=== PATIENT | male | born 1985 | race Caucasian/White ===

== ENCOUNTER 2020-11-26 04:34 | Inpatient (IN) | payer SELFPAY ==
--- NOTE | 2020-11-26 05:20 | Event Note ---
ED Screening Note Date of service: 11/26/20 Time: 05:19 ED Screening Note: Patient complains of nausea and vomiting and abdominal pain History of HIV-states compliance with antiretrovirals and states he is currently undetectable + Hematemesis Denies fever Tachycardia noted This initial assessment/diagnostic orders/clinical plan/treatment(s) is/are subject to change based on patients health status, clinical progression and re- assessment by fellow clinical providers in the ED. Further treatment and workup at subsequent clinical providers discretion. Patient/guardian urged not to elope from the ED as their condition may be serious if not clinically assessed and managed. Initial orders include: Lab CT
[2020-11-26 05:49] LABS: Basophils % (Auto) 0.2 % (0.0-1.8); Eosinophils # (Auto) 0.1 K/mm3 (0.0-0.4); Eosinophils % (Auto) 0.6 % (0.0-4.3); Hematocrit 45.8 % (35.5-45.6); Hemoglobin 15.4 gm/dl (11.8-15.2); Lymphocytes # (Auto) 2.2 K/mm3 (1.2-5.4); Lymphocytes % (Auto) 14.3 % (13.4-35.0); Mean Corpuscular HGB Conc 34 % (32-34); Mean Corpuscular Volume 90 fl (84-94); Monocytes # (Auto) 1.1 K/mm3 (0.0-0.8); Monocytes % (Auto) 6.9 % (0.0-7.3); Platelet Count 218 K/mm3 (140-440); Red Blood Count 5.11 M/mm3 (3.65-5.03)
[2020-11-26 05:54] LABS: INR 0.87 (0.87-1.13)
[2020-11-26 05:55] LABS: Partial Thromboplastin Time 26.7 Sec. (24.2-36.6)
[2020-11-26 06:09] LABS: Alanine Aminotransferase 22 units/L (7-56); Albumin 4.6 g/dL (3.9-5); BUN/Creatinine Ratio 12; Blood Urea Nitrogen 13 mg/dL (9-20); Hemolysis Index 3
[2020-11-26] MEDS ORDERED: SODIUM CHLORIDE 0.9% 1000 ML 1,000 ML IV ONE (06:38)
[2020-11-26] MEDS ORDERED: PANTOPRAZOLE 40 MG INJ IV ONE (06:38)
[2020-11-26] MEDS ORDERED: LORazepam 2 MG/ML VIAL IV ONE (06:53)
--- NOTE | 2020-11-26 07:01 | Cat Scan Report ---
CT abdomen pelvis w con INDICATION: abdominal pain, hematemesis. TECHNIQUE: All CT scans at this location are performed using the following dose modulation technique: Automated exposure control. CONTRAST: Omnipaque 300, 100 cc IV injection. COMPARISON: None available. CT ABDOMEN: The parenchymal organs are unremarkable in appearance. Negative for abdominal mass, fluid or inflammation. The bowel is not dilated or thickened. CT PELVIS: Negative for mass, fluid or inflammation. IMPRESSION: Negative for obstruction or localized inflammation. Signer Name: Davian Lucas MD Signed: 11/26/2020 6:56 AM Workstation Name: [id number]
[2020-11-26 07:30] LABS: Basophils % (Auto) 0.2 % (0.0-1.8); Eosinophils # (Auto) 0.1 K/mm3 (0.0-0.4); Eosinophils % (Auto) 0.4 % (0.0-4.3); Hematocrit 44.1 % (35.5-45.6); Hemoglobin 14.7 gm/dl (11.8-15.2); Lymphocytes # (Auto) 1.8 K/mm3 (1.2-5.4); Lymphocytes % (Auto) 13.2 % (13.4-35.0); Mean Corpuscular HGB Conc 33 % (32-34); Mean Corpuscular Volume 90 fl (84-94); Monocytes # (Auto) 0.8 K/mm3 (0.0-0.8); Monocytes % (Auto) 5.8 % (0.0-7.3); Platelet Count 193 K/mm3 (140-440); Red Blood Count 4.92 M/mm3 (3.65-5.03); Red Cell Distribution Width 13.1 % (13.2-15.2)
[2020-11-26 07:42] LABS: INR 0.9 (0.87-1.13)
[2020-11-26 07:43] LABS: Partial Thromboplastin Time 26.7 Sec. (24.2-36.6)
[2020-11-26 07:48] LABS: Creatine Kinase MB 6.3 ng/mL (0.0-4.0)
--- NOTE | 2020-11-26 08:20 | XRay Report ---
CHEST 1 VIEW 11/26/2020 8:00 AM INDICATION / CLINICAL INFORMATION: hypertension. COMPARISON: None available. FINDINGS: SUPPORT DEVICES: None. HEART / MEDIASTINUM: No significant abnormality. LUNGS / PLEURA: Clear lungs. No significant pleural effusion. No pneumothorax. ADDITIONAL FINDINGS: No significant additional findings. IMPRESSION: 1. No acute abnormality of the chest. Signer Name: Aaron Andujar MD Signed: 11/26/2020 8:15 AM Workstation Name: [id number]
[2020-11-26 08:30] LABS: Bacteria,Urine 2+ /HPF (Negative); Bilirubin,Urine NEG (Negative); Blood,Urine NEG (Negative); Color,Urine Yellow (Yellow); Mucus,Urine FEW /HPF; Protein,Urine <15 mg/dL mg/dL (Negative); Urobilinogen,Urine < 2.0 mg/dL (<2.0)
--- NOTE | 2020-11-26 10:16 | Emergency Department Report ---
ED General Adult HPI - General Chief complaint: GI Bleed Stated complaint: VOMITING X 4 DAYS Time Seen by Provider: 11/26/20 05:18 Source: patient Mode of arrival: Stretcher Limitations: No Limitations - History of Present Illness Initial comments: This is a 35-year-old male that states he has been vomiting for 4 days. Occasionally the emesis looked like coffee grounds or Coca-Cola. Today he had a bout of more significant emesis. He showed me a cell phone picture of his commode which did appear consistent with an upper GI bleed. There was no sign ificant quantity of fresh blood. However, there was a moderate amount of dark material consistent with upper GI bleeding in the photo. Patient complains of abdominal pain which is somewhat diffuse and intermittent. He is somewhat anxious and a bit hypomanic at the time of my encounter. He admits to recent methamphetamine abuse. Patient does not refer a history of prior GI bleeding. -: Gradual, days(s) Location: abdomen Radiation: non-radiation Quality: aching Consistency: intermittent Improves with: none Worsens with: none Associated Symptoms: denies other symptoms, nausea/vomiting Treatments Prior to Arrival: none - Related Data Home Medications Medication Instructions Recorded Confirmed Last Taken Elviteg/Joleen/Emtric/Tenofo Ala 500 mg PO DAILY 11/26/20 11/26/20 1 Week Ago [Mona (Olena)] ~11/19/20 Allergies Allergy/AdvReac Type Severity Reaction Status Date / Time amoxicillin Allergy Hives Verified 11/26/20 05:41 ED Review of Systems ROS: Stated complaint: VOMITING X 4 DAYS Other details as noted in HPI Constitutional: denies: chills, fever Eyes: denies: eye pain, eye discharge, vision change ENT: denies: ear pain, throat pain Respiratory: denies: cough, shortness of breath Cardiovascular: denies: chest pain, palpitations Endocrine: no symptoms reported Gastrointestinal: abdominal pain, nausea, other (States bowel movements have been normal). denies: diarrhea, melena, hematochezia Genitourinary: denies: urgency, dysuria Musculoskeletal: denies: back pain, joint swelling, arthralgia Skin: denies: rash, lesions Neurological: denies: headache, weakness, paresthesias Psychiatric: denies: anxiety, depression Hematological/Lymphatic: denies: easy bleeding, easy bruising ED Past Medical Hx - Past Medical History Previous Medical History?: Yes Hx HIV: Yes Additional medical history: Stomach Ulcer - Surgical History Past Surgical History?: Yes Additional Surgical History: Bowel Surgery - Social History Smoking Status: Never Smoker Substance Use Type: None - Medications Home Medications: Home Medications Medication Instructions Recorded Confirmed Last Taken Type Elviteg/Joleen/Emtric/Tenofo Ala 500 mg PO DAILY 11/26/20 11/26/20 1 Week Ago History [Genvoya (Nf)] ~11/19/20 ED Physical Exam - General Limitations: No Limitations General appearance: alert, in no apparent distress - Head Head exam: Present: atraumatic, normocephalic - Eye Eye exam: Present: normal appearance. Absent: scleral icterus - ENT ENT exam: Present: mucous membranes moist - Neck Neck exam: Present: normal inspection - Respiratory Respiratory exam: Present: normal lung sounds bilaterally. Absent: respiratory distress - Cardiovascular Cardiovascular Exam: Present: regular rate, normal rhythm. Absent: systolic murmur, diastolic murmur, rubs, gallop - GI/Abdominal GI/Abdominal exam: Present: soft, tenderness (Mild and diffuse without peritoneal signs), normal bowel sounds. Absent: distended, guarding, rebound, rigid, organomegaly, mass, bruit, pulsatile mass - Rectal Rectal exam: Present: deferred - Extremities Exam Extremities exam: Present: normal inspection - Back Exam Back exam: Present: normal inspection - Neurological Exam Neurological exam: Present: alert, oriented X3. Absent: motor sensory deficit - Psychiatric Psychiatric exam: Present: agitated, manic - Skin Skin exam: Present: warm, dry, intact, normal color. Absent: rash ED Course Vital Signs 11/26/20 11/26/20 11/26/20 05:21 06:31 07:30 Temperature 98.2 F Pulse Rate 106 H 102 H Respiratory 17 18 32 H Rate Blood Pressure 109/90 120/71 O2 Sat by Pulse 98 100 Oximetry 11/26/20 11/26/20 08:01 09:01 Temperature Pulse Rate 100 H Respiratory 20 15 Rate Blood Pressure 114/76 113/67 O2 Sat by Pulse 100 98 Oximetry - Reevaluation(s) Reevaluation #1: Patient was given Ativan and IV fluids. CT the abdomen showed no acute process. He was observed in the emergency department. He had no additional emesis. He remained hemodynamically stable. He was deemed appropriate for observation admission and admitted by the hospitalist staff 11/26/20 10:38 ED Medical Decision Making - Lab Data Result diagrams: 11/26/20 07:14 11/26/20 05:30 Laboratory Results - last 24 hr 11/26/20 11/26/20 11/26/20 05:30 05:30 05:30 WBC 15.4 H RBC 5.11 H Hgb 15.4 H Hct 45.8 H MCV 90 MCH 30 MCHC 34 RDW 13.0 L Plt Count 218 Lymph % (Auto) 14.3 [place] % (Auto) 6.9 Eos % (Auto) 0.6 Baso % (Auto) 0.2 Lymph # (Auto) 2.2 [place] # (Auto) 1.1 H Eos # (Auto) 0.1 Baso # (Auto) 0.0 Seg Neutrophils % 78.0 H Seg Neutrophils # 12.0 H PT 11.6 L INR 0.87 APTT 26.7 Sodium 136 L Potassium 4.2 Chloride 96.3 L Carbon Dioxide 30 Anion Gap 14 BUN 13 Creatinine 1.1 Estimated GFR > 60 BUN/Creatinine Ratio 12 Glucose 102 H Calcium 10.0 Magnesium Total Bilirubin 0.30 AST 25 ALT 22 Alkaline Phosphatase 121 Total Creatine Kinase CK-MB (CK-2) CK-MB (CK-2) Rel Index Total Protein 7.9 Albumin 4.6 Albumin/Globulin Ratio 1.4 Lipase 12 L Urine Color Urine Turbidity Urine pH Ur Specific [place] Urine Protein Urine Glucose (UA) Urine Ketones Urine Blood Urine Nitrite Urine Bilirubin Urine Urobilinogen Ur Leukocyte Esterase Urine WBC (Auto) Urine RBC (Auto) U Epithel Cells (Auto) Urine Bacteria (Auto) Urine Mucus Blood Type Antibody Screen 11/26/20 11/26/20 11/26/20 07:14 07:14 07:14 WBC 13.7 H RBC 4.92 Hgb 14.7 Hct 44.1 MCV 90 MCH 30 MCHC 33 RDW 13.1 L Plt Count 193 Lymph % (Auto) 13.2 L [place] % (Auto) 5.8 Eos % (Auto) 0.4 Baso % (Auto) 0.2 Lymph # (Auto) 1.8 [place] # (Auto) 0.8 Eos # (Auto) 0.1 Baso # (Auto) 0.0 Seg Neutrophils % 80.4 H Seg Neutrophils # 11.0 H PT 11.9 L INR 0.90 APTT 26.7 Sodium Potassium Chloride Carbon Dioxide Anion Gap BUN Creatinine Estimated GFR BUN/Creatinine Ratio Glucose Calcium Magnesium 1.80 Total Bilirubin AST ALT Alkaline Phosphatase Total Creatine Kinase 354 H CK-MB (CK-2) 6.3 H CK-MB (CK-2) Rel Index 1.7 Total Protein Albumin Albumin/Globulin Ratio Lipase Urine Color Urine Turbidity Urine pH Ur Specific [place] Urine Protein Urine Glucose (UA) Urine Ketones Urine Blood Urine Nitrite Urine Bilirubin Urine Urobilinogen Ur Leukocyte Esterase Urine WBC (Auto) Urine RBC (Auto) U Epithel Cells (Auto) Urine Bacteria (Auto) Urine Mucus Blood Type Antibody Screen 11/26/20 11/26/20 07:14 08:12 WBC RBC Hgb Hct MCV MCH MCHC RDW Plt Count Lymph % (Auto) [place] % (Auto) Eos % (Auto) Baso % (Auto) Lymph # (Auto) [place] # (Auto) Eos # (Auto) Baso # (Auto) Seg Neutrophils % Seg Neutrophils # PT INR APTT Sodium Potassium Chloride Carbon Dioxide Anion Gap BUN Creatinine Estimated GFR BUN/Creatinine Ratio Glucose Calcium Magnesium Total Bilirubin AST ALT Alkaline Phosphatase Total Creatine Kinase CK-MB (CK-2) CK-MB (CK-2) Rel Index Total Protein Albumin Albumin/Globulin Ratio Lipase Urine Color Yellow Urine Turbidity Clear Urine pH 7.0 Ur Specific [place] 1.060 H Urine Protein <15 mg/dl Urine Glucose (UA) Neg Urine Ketones Tr Urine Blood Neg Urine Nitrite Neg Urine Bilirubin Neg Urine Urobilinogen < 2.0 Ur Leukocyte Esterase Neg Urine WBC (Auto) 1.0 Urine RBC (Auto) 1.0 U Epithel Cells (Auto) < 1.0 Urine Bacteria (Auto) 2+ Urine Mucus Few Blood Type O NEGATIVE Antibody Screen Negative - EKG Data -: EKG Interpreted by Vt EKG shows normal: sinus rhythm, axis, intervals, QRS complexes, ST-T waves Rate: normal - EKG Data Interpretation: other (RSR V1 V2, slight intraventricular conduction delay) - Radiology Data Radiology results: report reviewed CHEST 1 VIEW 11/26/2020 8:00 AM INDICATION / CLINICAL INFORMATION: hypertension. COMPARISON: None available. FINDINGS: SUPPORT DEVICES: None. HEART / MEDIASTINUM: No significant abnormality. LUNGS / PLEURA: Clear lungs. No significant pleural effusion. No pneumothorax. ADDITIONAL FINDINGS: No significant additional findings. IMPRESSION: 1. No acute abnormality of the chest. CT the abdomen no acute process Critical care attestation.: If time is entered above; I have spent that time in minutes in the direct care of this critically ill patient, excluding procedure time. ED Disposition Clinical Impression: Upper GI bleeding, Methamphetamine abuse, HIV positive Abdominal pain Qualifiers: Abdominal location: generalized Qualified Code(s): R10.84 - Generalized abdominal pain Leukocytosis Qualifiers: Leukocytosis type: unspecified Qualified Code(s): D72.829 - Elevated white blood cell count, unspecified Disposition: DC-09 OP ADMIT IP TO THIS HOSP Is pt being admited?: Yes Does the pt Need Aspirin: No Condition: Stable Referrals: NENA HICKS DO [Primary Care Provider] - 3-5 Days Forms: Accompanied Note Time of Disposition: 10:48
[2020-11-26] MEDS ORDERED: ACETAMINOPHEN 325 MG TAB PO PRN (10:19)
[2020-11-26] MEDS ORDERED: ONDANSETRON 4 MG/2 ML INJ IV PRN (10:19)
[2020-11-26] MEDS ORDERED: MORPHINE 2 MG/1 ML INJ IV PRN (10:19)
[2020-11-26] MEDS ORDERED: ALBUTEROL 2.5 MG/3 ML NEBU IH PRN (10:19)
--- NOTE | 2020-11-26 10:22 | History and Physical Report ---
History of Present Illness Date of examination: 11/26/20 Date of admission: 11/26/20 Chief complaint: Correction of blood History of present illness: Patient is a 35-year-old male with history of HIV who presents to the ED with complaints of coffee-ground emesis which he describes as Coca-Cola.. Reports that this has been going on for 4 days with no associated abdominal pain. He reports that prior to this he has had multiple episodes of dry heaving. He also reports that a few days ago before this started that he did meth amphetamine. 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 He reports compliance with his HIV medication. He denies any suicidal homicidal ideation although in the ER he had appeared a bit anxious and with a consider hypomanic but he was actually more alert awake oriented during the time of my evaluation. He tells me that he does not want to stay in the hospital and will be signing out AGAINST MEDICAL ADVICE. Past History Past Medical History: HIV/AIDS Past Surgical History: No surgical history Social history: , IV drug use, full code Family history: no significant family history Medications and Allergies Allergies Allergy/AdvReac Type Severity Reaction Status Date / Time amoxicillin Allergy Hives Verified 11/26/20 05:41 Home Medications Medication Instructions Recorded Confirmed Last Taken Type Elviteg/Joleen/Emtric/Tenofo Ala 500 mg PO DAILY 11/26/20 11/26/20 1 Week Ago History [Genvoya (Nf)] ~11/19/20 Ondansetron [Zofran Odt] 4 mg PO Q6H #30 tab.rapdis 11/26/20 Unknown Rx Pantoprazole [Protonix TAB] 40 mg PO QDAY #30 tablet 11/26/20 Unknown Rx Active Meds: Active Medications Acetaminophen (Acetaminophen 325 Mg Tab) 650 mg PO Q4H PRN PRN Reason: Pain MILD(1-3)/Fever >100.5/GALVAN Albuterol (Albuterol 2.5 Mg/3 Ml Nebu) 2.5 mg IH Q3HRT PRN PRN Reason: Shortness Of Breath Morphine Sulfate (Morphine 2 Mg/1 Ml Inj) 2 mg IV Q4H PRN PRN Reason: Pain, Moderate (4-6) Ondansetron HCl (Ondansetron 4 Mg/2 Ml Inj) 4 mg IV Q4H PRN PRN Reason: Nausea And Vomiting Pantoprazole Sodium (Pantoprazole 40 Mg Inj) 40 mg IV BID BELEM Sodium Chloride (Sodium Chloride 0.9% 10 Ml Flush Syringe) 10 ml IV BID BELEM Sodium Chloride (Sodium Chloride 0.9% 10 Ml Flush Syringe) 10 ml IV PRN PRN PRN Reason: LINE FLUSH Review of Systems All systems: negative Eyes: bilateral: other (Different colored contacts) Respiratory: no hemoptysis, no shortness of breath, no dyspnea on exertion Gastrointestinal: no abdominal pain, no vomiting, no constipation, no change in bowel habits, no melena, no hematochezia, no loss of appetite Genitourinary Male: impotence, no hematuria, no urinary frequency, no urinary hesitancy, no nocturia, no testicular pain Exam - Physical Exam Narrative exam: VITAL SIGNS: Reviewed. GENERAL: The patient appears normally developed, Vital signs as documented. HEAD: No signs of head trauma. EYES: Pupils are equal. Extraocular motions intact. EARS: Hearing grossly intact. MOUTH: Oropharynx is normal. NECK: No adenopathy, no JVD. CHEST: Chest with clear breath sounds bilaterally. No wheezes, rales, or rhonchi. CARDIAC: Regular rate and rhythm. S1 and S2, without murmurs, gallops, or rubs. VASCULAR: No Edema. Peripheral pulses normal and equal in all extremities. ABDOMEN: Soft, non tender and non distended. No rebound or guarding, and no masses palpated. Bowel Sounds normal. MUSCULOSKELETAL: Good range of motion of all major joints. Extremities without clubbing, cyanosis or edema. NEUROLOGIC EXAM: Alert and oriented x 3 No focal sensory or strength deficits. Speech normal. Follows commands. PSYCHIATRIC: Mood normal. SKIN: detail exam as documented in skin assessment - Constitutional Vitals: Temp Pulse Resp BP Pulse Ox 98.2 F 100 H 15 113/67 98 11/26/20 05:21 11/26/20 08:01 11/26/20 09:01 11/26/20 09:01 11/26/20 09:01 Results - Labs CBC & Chem 7: 11/26/20 07:14 11/26/20 05:30 Labs: Laboratory Last Values WBC 13.7 K/mm3 (4.5-11.0) H 11/26/20 07:14 RBC 4.92 M/mm3 (3.65-5.03) 11/26/20 07:14 Hgb 14.7 gm/dl (11.8-15.2) 11/26/20 07:14 Hct 44.1 % (35.5-45.6) 11/26/20 07:14 MCV 90 fl (84-94) 11/26/20 07:14 MCH 30 pg (28-32) 11/26/20 07:14 MCHC 33 % (32-34) 11/26/20 07:14 RDW 13.1 % (13.2-15.2) L 11/26/20 07:14 Plt Count 193 K/mm3 (140-440) 11/26/20 07:14 Lymph % (Auto) 13.2 % (13.4-35.0) L 11/26/20 07:14 [place] % (Auto) 5.8 % (0.0-7.3) 11/26/20 07:14 Eos % (Auto) 0.4 % (0.0-4.3) 11/26/20 07:14 Baso % (Auto) 0.2 % (0.0-1.8) 11/26/20 07:14 Lymph # (Auto) 1.8 K/mm3 (1.2-5.4) 11/26/20 07:14 [place] # (Auto) 0.8 K/mm3 (0.0-0.8) 11/26/20 07:14 Eos # (Auto) 0.1 K/mm3 (0.0-0.4) 11/26/20 07:14 Baso # (Auto) 0.0 K/mm3 (0.0-0.1) 11/26/20 07:14 Seg Neutrophils % 80.4 % (40.0-70.0) H 11/26/20 07:14 Seg Neutrophils # 11.0 K/mm3 (1.8-7.7) H 11/26/20 07:14 PT 11.9 Sec. (12.2-14.9) L 11/26/20 07:14 INR 0.90 (0.87-1.13) 11/26/20 07:14 APTT 26.7 Sec. (24.2-36.6) 11/26/20 07:14 Sodium 136 mmol/L (137-145) L 11/26/20 05:30 Potassium 4.2 mmol/L (3.6-5.0) 11/26/20 05:30 Chloride 96.3 mmol/L (98-107) L 11/26/20 05:30 Carbon Dioxide 30 mmol/L (22-30) 11/26/20 05:30 Anion Gap 14 mmol/L 11/26/20 05:30 BUN 13 mg/dL (9-20) 11/26/20 05:30 Creatinine 1.1 mg/dL (0.8-1.3) 11/26/20 05:30 Estimated GFR > 60 ml/min 11/26/20 05:30 BUN/Creatinine Ratio 12 % 11/26/20 05:30 Glucose 102 mg/dL (75-100) H 11/26/20 05:30 Calcium 10.0 mg/dL (8.4-10.2) 11/26/20 05:30 Magnesium 1.80 mg/dL (1.7-2.3) 11/26/20 07:14 Total Bilirubin 0.30 mg/dL (0.1-1.2) 11/26/20 05:30 AST 25 units/L (5-40) 11/26/20 05:30 ALT 22 units/L (7-56) 11/26/20 05:30 Alkaline Phosphatase 121 units/L (35-129) 11/26/20 05:30 Total Creatine Kinase 354 units/L (55-170) H 11/26/20 07:14 CK-MB (CK-2) 6.3 ng/mL (0.0-4.0) H 11/26/20 07:14 CK-MB (CK-2) Rel Index 1.7 (0-4) 11/26/20 07:14 Total Protein 7.9 g/dL (6.3-8.2) 11/26/20 05:30 Albumin 4.6 g/dL (3.9-5) 11/26/20 05:30 Albumin/Globulin Ratio 1.4 % 11/26/20 05:30 Lipase 12 units/L (13-60) L 11/26/20 05:30 Urine Color Yellow (Yellow) 11/26/20 08:12 Urine Turbidity Clear (Clear) 11/26/20 08:12 Urine pH 7.0 (5.0-7.0) 11/26/20 08:12 Ur Specific [place] 1.060 (1.003-1.030) H 11/26/20 08:12 Urine Protein <15 mg/dl mg/dL (Negative) 11/26/20 08:12 Urine Glucose (UA) Neg mg/dL (Negative) 11/26/20 08:12 Urine Ketones Tr mg/dL (Negative) 11/26/20 08:12 Urine Blood Neg (Negative) 11/26/20 08:12 Urine Nitrite Neg (Negative) 11/26/20 08:12 Urine Bilirubin Neg (Negative) 11/26/20 08:12 Urine Urobilinogen < 2.0 mg/dL (<2.0) 11/26/20 08:12 Ur Leukocyte Esterase Neg (Negative) 11/26/20 08:12 Urine WBC (Auto) 1.0 /HPF (0.0-6.0) 11/26/20 08:12 Urine RBC (Auto) 1.0 /HPF (0.0-6.0) 11/26/20 08:12 U Epithel Cells (Auto) < 1.0 /HPF (0-13.0) 11/26/20 08:12 Urine Bacteria (Auto) 2+ /HPF (Negative) 11/26/20 08:12 Urine Mucus Few /HPF 11/26/20 08:12 Blood Type O NEGATIVE 11/26/20 07:14 Antibody Screen Negative 11/26/20 07:14 Assessment and Plan Assessment and plan: Patient is a 35-year-old male with history of HIV who presents to the ED with complaints of coffee-ground emesis which he describes as Coca-[employer].. Reports that this has been going on for 4 days with no associated abdominal pain. He reports that prior to this he has had multiple episodes of dry heaving. He also reports that a few days ago before this started that he did meth amphetamine. 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 He reports compliance with his HIV medication. He denies any suicidal homicidal ideation although in the ER he had appeared a bit anxious and with a consider hypomanic but he was actually more alert awake oriented during the time of my evaluation. He tells me that he does not want to stay in the hospital and will be signing out AGAINST MEDICAL ADVICE. According to patient his HIV is "undetectable" Upper GI bleed likely secondary to esophagitis versus Jannet-Tucker tear Methamphetamine abuse/use disorder HIV Leukocytosis likely reactive Plan Admit patient in observation Monitor H&H closely and transfuse as needed GI consult PPI twice daily IV Extensive counseling 15 minutes on substance abuse and patient verbalized understanding. Advised patient about leaving against AMA will prescribe PPI and zofran. DVT/GI prophy Advance Directives: Yes Plan of care discussed with patient/family: Yes
[2020-11-26 11:17] VITALS: BP 120/64
[2020-11-26] MEDS ORDERED: PANTOPRAZOLE 40 MG INJ IV SCH (22:00)
== END 2020-11-26 16:06 | disposition left against medical advice (07) | DRG 368 ==
LOC: ED 04:34 → 3A 10:52
PROVIDERS: ADMIT Internal Medicine; ATTEND Internal Medicine
DX: K20.91 Esophagitis, unspecified with bleeding (principal); K22.6 Gastro-esophageal laceration-hemorrhage syndrome; B20 Human immunodeficiency virus [HIV] disease; F15.10 Other stimulant abuse, uncomplicated; D72.829 Elevated white blood cell count, unspecified; Z88.1 Allergy status to other antibiotic agents; Z79.899 Other long term (current) drug therapy
CPT/HCPCS: 36415; 71045; 74177; 80053; 81001; 82550; 82553; 83690; 83735; 85025; 85610; 85730; 86850; 86900; 86901; 93005; G0378; C9113; J2060; J7030; Q9967